=== PATIENT | female | born 1985 | race Caucasian/White ===

== ENCOUNTER 2017-08-23 17:00 | Emergency (ER) | payer SELFPAY ==
--- NOTE | 2017-08-23 17:07 | NUR ---
PT LEFT THE EMERGENCY DEPARTMENT, PT WANTS TO GO SEE HER BOYFRIEND INSTEAD
== END 2017-08-23 17:07 | disposition left against medical advice (07) ==
LOC: ER 17:04
DX: Z53.21 Procedure and treatment not carried out due to patient leaving prior to being seen by health care provider (principal)
CPT/HCPCS: J7060